=== PATIENT | female | born 1955 | race African-American/Black ===

== ENCOUNTER 2020-02-19 19:37 | Inpatient (IN) | payer OTHER ==
[~2020-02-19] VITALS: Ht 157.5 cm; Wt 78.9 kg
--- NOTE | ~2020-02-19 | HC ---
[facility] [place] [address] CONSULTATION Name: JANESSA WALLACE Room #: 215-P ADM IN M.R.#: [id number] Admission: 02/19/20 Attend Phys: Manjinder Valderrama MD Discharge: Date of : 51 Report #: [id number] THIS REPORT FOR: cc: YOLI - No family physician/PCP YOLI - No family physician/PCP Tolu Cornejo MD ~ CC: Manjinder KENT physician/PCP DATE OF SERVICE: 02/20/2020 HISTORY OF PRESENT ILLNESS: This is a 64-year-old female patient who was evaluated by me for uncontrolled hypertension and what she described as numbness and the weakness on the left side. It has improved, but the patient has not returned back to the baseline. She had predominant symptoms in the left upper extremity, but the left face was also involved. She has not seen a physician for a long time. She does not know what her blood pressure is in the baseline. On presentation to the Emergency Room, her blood pressure was 241/127. She does not take any antihypertensive, but at one time she used to. REVIEW OF SYSTEMS: Positive for some weakness and numbness on the left side. It was about 3 days' duration. It has started spontaneously. She has a history of hypertension, but does not look like she takes any medication. She does not even go to her primary care. She did not have any explanation why she does that. Fourteen-point review of systems was carried out and she indicates that she does not have any new eye, ENT, cardiac, respiratory, GI, , musculoskeletal, constitutional, dermatological, hematological, psychiatric, throat, allergic symptom associated with present symptomatology. PAST MEDICAL HISTORY: Positive for hysterectomy. FAMILY HISTORY: Positive for strokes, but in later age. SOCIAL HISTORY: She smokes, but does not drink any alcohol except on special occasions. PHYSICAL EXAMINATION: Indicates she is alert, responsive, able to follow simple and complex commands. She is right handed. She indicates her speech is back to the baseline and so is her memory and fund of knowledge. Cranial nerve examination 2-12 looks mostly unremarkable. The patient does have some weakness on the left side. Her position sense appeared to be intact there. Reflexes look symmetrical. Tone looks symmetrical. There is not much cerebellar sign, the best I can tell. I did not make the patient walk. I could not look at the patient's fundus. She is a moderately built individual. She does not have any dysmorphic features of eyes, ears and face and her vision and hearing look adequate. Her blood pressure is 197/71, respirations 16, pulse is 70, [facility] [address] [place] [address] CONSULTATION Name: JANESSA WALLACE Room #: [address] [place] [address] IN M.R.#: [id number] Admission: 02/19/20 Attend Phys: Manjinder Valderrama MD Discharge: Date of : 51 Report #: [id number] temperature is 98.1. LABORATORY DATA: Indicate a white count of 10.3. Pulses are somewhat difficult to feel. She has no thyroid mass. She has no carotid bruit. She did have a CT scan of the head, which was unremarkable. IMPRESSION: Uncontrolled hypertension, probably longstanding. It needs to be cautiously lowered over a period of time. Stroke needs to be excluded, especially she has multiple risk factors. RECOMMENDATIONS: 1. Continue aspirin. 2. We will suggest aggressive treatment of her dyslipidemia. 3. She needs to stop smoking. 4. We will await the carotid Doppler and MRI and see what does that show. 5. 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 Thank you very much for this referral and if you have any question, please feel free to contact me. By: [id number] Tolu Cornejo MD /nt
[2020-02-19 19:47] VITALS: BP 241/127
[2020-02-19 20:01] LABS: URINE BILIRUBIN NEGATIVE (Negative); URINE BLOOD 1+ (Negative); URINE CLARITY CLEAR; URINE COLOR YELLOW; URINE GLUCOSE-RANDOM* NEGATIVE (Negative); URINE KETONES NEGATIVE (Negative); URINE LEUKOCYTES-REFLEX NEGATIVE (Negative); URINE NITRITE-REFLEX NEGATIVE (Negative); URINE PROTEIN (DIPSTICK) TRACE (Negative); URINE UROBILINOGEN 0.2 E.U./dl (0.2-1.0)
[2020-02-19 20:13] LABS: BACTERIA-REFLEX 1-9 Few /HPF (None Seen); CASTS None Seen /LPF (None Seen); CRYSTALS None Seen /LPF (None Seen); SQUAMOUS 0-3 Few /LPF (0-3); URINE RBC 0-2 Rare /HPF (0-2); URINE WBC-REFLEX None Seen /HPF (0-5)
[2020-02-19] MEDS ORDERED: ASA81BEC PO (20:23)
[2020-02-19 20:45] LABS: ABSOLUTE NEUTROPHILS 5.6 thou/uL (1.4-8.2); BASOPHILS 1.1 % (0.0-2.0); EOSINOPHILS 1.6 % (0.0-3.0); HEMATOCRIT 51.4 % (37.0-47.0); HEMOGLOBIN 17.9 gm/dL (12.0-15.0); MCH 28.9 pg (26.0-34.0); MCHC 34.9 g/dL (28.0-37.0); MCV 82.8 fL (80.0-100.0); MONOCYTES 7.5 % (1.0-8.0); PLATELET COUNT 240 thou/uL (150-400); POLYS 54.8 % (36.0-66.0); RDW 15.9 % (10.5-14.5); WBC 10.3 thou/uL (4.0-11.0)
[2020-02-19 20:50] LABS: ANION GAP 11 mmol/L (7-16); BUN 9 mg/dL (7-18); CALCIUM 9.4 mg/dL (8.5-10.1); CHLORIDE 104 mmol/L (98-107); CO2 27 mmol/L (21-32); CREATININE 0.9 mg/dL (0.6-1.0); GLUCOSE 128 mg/dL (74-106); POTASSIUM 3.6 mmol/L (3.5-5.1); SODIUM 142 mmol/L (136-145)
[2020-02-19 21:00] LABS: ALBUMIN 4.2 g/dL (3.4-5.0); SGOT 18 U/L (15-37); SGPT 31 U/L (30-65); TOTAL BILIRUBIN 0.4 mg/dL (0.2-1.0); TOTAL PROTEIN 7.8 g/dL (6.4-8.2); TROPONIN-I <0.06 ng/mL (<0.06)
[2020-02-19 21:37] VITALS: BP 229/95
[2020-02-19] MEDS ORDERED: KLOR-CON 10 ER10 MEQ PO (21:51)
[2020-02-19 21:52] VITALS: BP 216/80
[2020-02-19 22:10] LABS: CHOLESTEROL 236 mg/dL (<200); HDL CHOLESTEROL 42 mg/dL (>40); LDL CHOLESTEROL 161 mg/dL (<100); TC:HDL 5.6 Ratio (Not establshd); TRIGLYCERIDE 165 mg/dL (<150); VLDL 33 mg/dL (<40)
[2020-02-19 22:13] LABS: SERUM ASSESSMENT Clear
[2020-02-19 22:30] VITALS: BP 236/106
[2020-02-20 04:00] VITALS: BP 172/61
--- NOTE | 2020-02-20 04:28 | NUR ---
Pt is an ER admit. Pt is admitted with CVA. No sign of distress noted in pt. Pt is alert and oriented upon arrival to the floor. Denies any pain. Admission assessment and data obtained. Pt is steady. NIH stroke assessment completed. No acute event overnight. Continue to montior pt. No further needs at this time.
[2020-02-20 07:45] VITALS: BP 197/71
--- NOTE | 2020-02-20 13:54 | 2DMMODE ---
[facility] [place] [address] 2 D/M-MODE ECHOCARDIOGRAM Name: JANESSA WALLACE Room #: 215-P ADM IN M.R.#: [id number] Admission: 02/19/20 Attend Phys: Manjinder Valderrama MD Discharge: Date of : 51 Report #: [id number] THIS REPORT FOR: cc: FAM - No family physician/PCP FAM - No family physician/PCP Roly Lopez MD ~ APPROVED REPORT Study performed: 02/20/2020 13:04:41 EXAM: Comprehensive 2D, Doppler, and color-flow Echocardiogram Patient Location: Echo lab Room #: [facility][note 3] Status: routine BSA: 1.80 HR: 65 bpm BP: 197/71 mmHg Rhythm: NSR Indications Stroke. Hx: HTN, HLP. 2D Dimensions RVDd: 34.99 mm IVSd: 12.24 (7-11mm) LVOT Diam: 18.60 (18-24mm) LVDd: 42.00 mm PWd: 12.00 (7-11mm) LVDs: 25.33 (25-40mm) Aortic Root: 32.18 mm Volumes Left Atrial Volume (Systole) Single Plane 4CH: 24.95 mL Single Plane 2CH: 37.74 mL LA ESV Index: 19.00 mL/m2 Aortic Valve AoV Peak Ventura.: 1.80 m/s AO Peak Gr.: 12.97 mmHg LVOT Max P.06 mmHg LVOT Max V: 1.42 m/s ELYSE Vmax: 2.14 cm2 Mitral Valve E/A Ratio: 0.7 [facility] [address] [place] [address] 2 D/M-MODE ECHOCARDIOGRAM Name: JANESSA WALLACE Room #: 215-P ADM IN M.R.#: [id number] Admission: 02/19/20 Attend Phys: Manjinder Valderrama MD Discharge: Date of : 51 Report #: [id number] MV Decel. Time: 254.28 ms MV E Max Ventura.: 0.59 m/s MV A Ventura.: 0.85 m/s MV PHT: 73.74 ms IVRT: 78.43 ms Pulmonary Valve PV Peak Ventura.: 0.99 m/s PV Peak Gr.: 3.92 mmHg Pulmonary Vein P Vein S: 0.44 m/s P Vein A: 0.28 m/s P Vein D: 0.32 m/s P Vein A Dur.: 124.6 msec P Vein S/D Ratio: 1.38 Tricuspid Valve RAP Estimate: 5.00 mmHg Left Ventricle The left ventricle is normal size. There is normal LV segmental wall motion. Mild concentric left ventricular hypertrophy. The left ventricular systolic function is normal. The left ventricular ejection fraction is within the normal range. LVEF is 65-70%. Mild diastolic dysfunction is present (impaired relaxation pattern). Right Ventricle The right ventricle is normal size. The right ventricular systolic function is normal. Atria The left atrium size is normal. No shunting noted with contrast bubble injection. The right atrium size is normal. Aortic Valve The aortic valve is normal in structure. No aortic regurgitation is present. There is no aortic valvular stenosis. Mitral Valve The mitral valve is normal in structure. There is no mitral valve regurgitation noted. No evidence of mitral valve stenosis. Tricuspid Valve The tricuspid valve is normal in structure. There is no tricuspid valve regurgitation noted. Unable to assess PA pressure. Pulmonic Valve [facility] [address] [place] [address] 2 D/M-MODE ECHOCARDIOGRAM Name: JANESSA WALLACE Room #: 215-P [facility] IN M.R.#: [id number] Admission: 02/19/20 Attend Phys: Manjinder Valderrama MD Discharge: Date of : 51 Report #: [id number] Pulmonic valve is not well visualized. Great Vessels The aortic root is normal in size. Ascending aorta is not well visualized. IVC is normal in size and collapses >50% with inspiration. Pericardium There is no pericardial effusion. <Conclusion> The left ventricle is normal size. Mild concentric left ventricular hypertrophy. The left ventricular systolic function is normal. Mild diastolic dysfunction is present (impaired relaxation pattern). The right ventricle is normal size. No shunting noted with contrast bubble injection. The aortic valve is normal in structure. There is no mitral valve regurgitation noted. <ELECTRONICALLY SIGNED> By: Roly Lopez MD 02/20/20 1353 1353 1353 Roly Lopez MD /INF
[2020-02-20 14:58] VITALS: BP 197/71
--- NOTE | 2020-02-20 15:00 | NUR ---
Case opened to follow for dc planning. Chart reviewed and discussed with the care team. Stroke workup in progress with Neuro/OT/PT/ST and Edin martinez. Vice President Of Software Development spoke with the pt via phone. She indicates that she lives with her son Bradford. She currently does not have a pcp but has the number to someone near [facility] that she can call at dc. She reports that she does not have the money to get scripts filled and could use some help with any dc medicationss. She is retired and relies on her son for transportation and errands. She has 3 steps to enter the home where every thing she needs is on the main level. She does not have or use any dme. She is open to getting a cane or rwalker if recommended. She is hoping to be cleared for dc home tomorrow. She is not interested in rehab or snf as she has things she needs to take care of at home. The pt is a daily smoker. She was indep with gait and adl's prior to admission. Message left for therapy to advise on any dme recommendations. The pt has been instructed to make a pcp appt for as soon as possible. She declined assistance with this. She reports her son is her next of kin contact and can be reached on his cell at [phone] as needed. She has her cell with in in her room. She feels she is improving and has good family support at home. CM to check on her DME needs as well as help voucher 30 day supply of her dc medications to allow her time to setup a new pcp appt.
[2020-02-20 16:10] VITALS: BP 184/75
--- NOTE | 2020-02-20 18:34 | NUR ---
PT CARE ASSUMED APPROX 0700. ASSESSMENTS CHARTED. PT DENIES PAIN AND SOA. VSS. PT DIFFICULT WITH POC AT TIMES. ALSO REFUSING REHAB TOMORROW. WILL F/U TOMORROW WITH THE DR AND OUTGOING INSPECTOR. PT DENIES QUESTIONS OR CONCERNS REGARDING POC. NO DISTRESS NOTED.
[2020-02-20 20:19] VITALS: BP 202/94
[2020-02-21 01:06] LABS: GLYCOHEMOGLOBIN (HGB A1C) 6.6 % (4.8-5.6)
[2020-02-21 03:48] VITALS: BP 187/78
--- NOTE | 2020-02-21 04:25 | NUR ---
ASSUMED CARE OF PATIENT AT 1900. PATIENT AMBULATES WITHOUT ASSISTANCE IN ROOM. PATIENT HAS NO C/O PAIN AND DENIES SOA WITH EXERTION. AT LAST ASSESSMENT PATIENT STATES SHE STILL HAS SOME NUMBNESS IN LEFT HAND. BILATERAL PUBLIC SPACE ATTENDANT STRENGTH EQUAL. PATIENT ANSWERED QUESTIONS APPROPRIATELY. NO SLURRED SPEECH OBSERVED. WILL CONTINUE TO MONITOR.
[2020-02-21 07:50] VITALS: BP 190/87
--- NOTE | 2020-02-21 09:02 | EKG ---
[facility] [place] [address] ELECTROCARDIOGRAM REPORT Name: JANESSA WALLACE Room #: 215- ADM IN M.R.#: [id number] Admission: 02/19/20 Attend Phys: Manjinder Valderrama MD Discharge: Date of : 51 Report #: [id number] THIS REPORT FOR: cc: YOLI Banks family physician/PCP YOLI Banks family physician/PCP William Quiros MD [facility] THIS REPORT FOR: //name// [facility] ED Test Date: 2020-02-19 Test Time: 19:59:12 Pat Name: JANESSA WALLACE Department: Room: [facility] Gender: F Accountant Machine Processing: JOANN : 1955 Requested By: Jeffry Chávez Order Number: [id number] MD: William Quiros Measurements Intervals [place] Rate: 79 P: 62 UT: 140 QRS: 31 QRSD: 149 T: 12 QT: 414 QTc: 475 Interpretive Statements Sinus rhythm Right bundle branch block Baseline wander in lead(s) V5 Compared to ECG 12/28/2004 13:28:36 Right bundle-branch block now present Electronically Signed On 02-21-2020 9:02:22 CDT by William Quiros [email or web address] <ELECTRONICALLY SIGNED> By: William Quiros MD, [facility] 02/21/20901 58 58 William Quiros MD, [facility] /EPI
[2020-02-21] MEDS ORDERED: LISINOPRIL10 MG PO (09:52)
[2020-02-21] MEDS ORDERED: ASPIRIN325 PO (09:52)
[2020-02-21] MEDS ORDERED: LIPITOR 20 MG T20 M1 PO (09:52)
--- NOTE | 2020-02-21 12:15 | NUR ---
ASSUMED CARE AT CHANGE OF SHIFT. ALERT X4, FROM HOME WITH SON, NIH INTERVENTION C NO ABNORMS. UP AB AMY, DENIES PAIN, DENIES SOB. WILL DC HOME WITH HH. [facility], AND NEW SCRIPTS. PT TO FOLLOW UP WITH A PCP. PERSONAL ITEMS AND CALL LIGHT IN REACH. CONTINUE TO MONITOR. WILL DC THIS AFTERNOON.
--- NOTE | 2020-02-21 12:29 | NUR ---
FAXED REFERRAL TO [facility] FOR A 2 WHEELED WALKER SPOKE WITH INTAKE THEY ARE GOING TO DELIVER WALKER PRIOR TO DC.
[2020-02-21 13:00] VITALS: BP 220/87; BP 223/90
[2020-02-21 13:54] VITALS: BP 197/71
--- NOTE | 2020-02-21 14:11 | NUR ---
Script copays vouchered for a total of $7 for a 30 day supply. Pt encouraged to make f/u appt with the PCP group at [facility] that she prefers to use. Pt provided with a FWW for home use per Ne. The pt is adament she is dcing home today and does not want rehab or hh arrange. [facility] WANDA and outpt therapy recommended and info provided to the pt. Neuro had couseled the pt regarding the importanced of bp montioring, taking her meds and f/u care. [facility] info provided as well for their walkin clinic option. Pt's son will be taking her home today.
[2020-02-21 14:44] VITALS: BP 197/71
--- NOTE | 2020-02-21 15:02 | NUR ---
FAXED REFERRAL TO [facility] FOR PT/OT THERAPY SPOKE WITH NISHANT IN INTAKE SHE RECEIVED REFERRAL AND WILL CALL PT ON MONDAY TO DISCUSS IF SHE WOULD LIKE 4HR/DAY OR JUST COME IN FOR OUTPT PT/OT THERAPY.
[2020-02-21] MEDS ORDERED: PLAVIX 75 MG TA75 MG PO (15:43)
--- NOTE | 2020-02-21 16:51 | NUR ---
REVIEWED DC INSTRUCTIONS WITH PT AFTER TALKING WITH DR HAWKINS AND HUY BALES. TELE AND IV REMOVED, PT'S WALKER ARRIVED, CALLED SON, TONYA, AND READ NEURO NOTES ABOUT HIS MOM SO HE'S AWARE OF HER SITUATION AND WILL ADVOCATE FOR HER WHEN SHE IS NOT TAKING CARE OF HERSELF. ALL MEDS BROUGHT FROM PHARMACY TO PT, SHE LEFT FOR HOME WITH CAB. SON WILL MEET HER AT THE HOUSE TO HELP HER IN. SHE TOOK ALL OF HER BELONGINGS.
== END 2020-02-21 16:30 | disposition home or self-care (01) | DRG 65 ==
LOC: ER 19:37 → EROBS 21:05 → 2N 21:05
PROVIDERS: Emergency Medicine; Nurse Practitioner Family; ADMIT Hospitalist; ATTEND Hospitalist
DX: I63.9 Cerebral infarction, unspecified (principal); I69.354 Hemiplegia and hemiparesis following cerebral infarction affecting left non-dominant side; I10 Essential (primary) hypertension; I66.09 Occlusion and stenosis of unspecified middle cerebral artery; F17.210 Nicotine dependence, cigarettes, uncomplicated; E78.5 Hyperlipidemia, unspecified; Z90.710 Acquired absence of both cervix and uterus; Z71.6 Tobacco abuse counseling; Z79.82 Long term (current) use of aspirin; Z79.899 Other long term (current) drug therapy
CPT/HCPCS: 10081